=== PATIENT | male | born 1950 | race Caucasian/White ===

== ENCOUNTER 2017-12-08 10:26 | Emergency (ER) | payer MEDICARE ==
[2017-12-08 10:44] VITALS: TEMP 96.4
[2017-12-08] MEDS ORDERED: TETANUS,DIPHTHERIA,PERTUSSIS 1 EA SYG IM ONE (10:45)
--- NOTE | 2017-12-08 11:03 | ED.PDOC ---
History of Present Illness - General Chief Complaint: Laceration Stated Complaint: laceration Time Seen by Provider: 12/08/17 11:03 Source: patient Exam Limitations: no limitations - History of Present Illness Initial Comments: Tu Parada 67 y/o male stated accidentally injure left thumb with hand saw when it slipped off while cutting wood at home.Had laceration on his left thumb after incident. Timing/Duration: just prior to arrival Severity: moderate Location: hands - left thumb Improving Factors: rest Worsening Factors: movement Associated Symptoms: denies symptoms Allergies/Adverse Reactions: Allergies NO KNOWN ALLERGY Allergy (Verified 12/08/17 10:44) Home Medications: Ambulatory Orders Acetaminophen W/ Codeine [Tylenol W/ CODEINE #3] 1 ea PO Q4HR PRN #14 12/08/17 Amoxicillin 12/08/17 Review of Systems - Review of Systems Constitutional: States: no symptoms reported EENTM: States: no symptoms reported Respiratory: States: no symptoms reported Cardiology: States: no symptoms reported Skin: States: see HPI All other Systems: Reviewed and Negative, No Change from Baseline Past Medical History (General) - Patient Medical History Hx Stroke: No Hx Congestive Heart Failure: No Hx Diabetes: No - Vaccination History Hx Tetanus, Diphtheria Vaccination: - unknown Hx Influenza Vaccination: Yes Hx Pneumococcal Vaccination: No - Social History Hx Tobacco Use: Yes - occasional cigar smoking Family Medical History - Family History Father Family History: Unknown Living Status: Unknown Physical Exam - Physical Exam General Appearance: Alert, Comfortable, No apparent distress Eyes, Ears, Nose, Throat Exam: normal ENT inspection Neck: non-tender, full range of motion Cardiovascular/Chest: normal peripheral pulses, regular rate, rhythm Respiratory: lungs clear, normal breath sounds Gastrointestinal/Abdominal: non tender, soft Back Exam: normal inspection Extremity: normal range of motion - left thumb;neurovascular intact before local anesthesia, non-tender Neurologic: no motor/sensory deficits, alert, oriented x 3 Skin Exam: warm/dry, normal color Skin Problem Location: other - laceration left thumb Skin Character: other - laceration left thumb 2.5 cm Progress - Progress Progress: 12/08/17 11:53 Last Vital Signs Temp 96.4 F L 12/08/17 10:40 Pulse 65 12/08/17 10:40 Resp 16 12/08/17 10:40 BP 156/98 12/08/17 10:40 Pulse Ox 96 12/08/17 10:40 - EKG/XRAY/CT XRAY: left thumb no FB,no fracture Procedures - Laceration/Wound Repair Finger Wound Length (cm): 2.5 - left thumb dorsal aspect Wound's Depth, Shape: superficial, irregular Wound Explored: no foreign body removed Irrigated w/ Saline (cc's): 30 Betadine Prep?: No - hibiclens Anesthesia: 1% Lidocaine Volume Anesthetic (cc's): 8 Wound Repaired With: sutures Suture Size/Type: 4:0, nylon Number of Sutures: 6 Layer Closure?: No Sterile Dressing Applied?: Yes Departure - Departure Clinical Impression: Laceration of thumb without complication Qualifiers: Encounter type: initial encounter Laterality: left Qualified Code(s): S61.012A - Laceration without foreign body of left thumb without damage to nail, initial encounter Time of Disposition: 11:57 Disposition: Discharge to Home or Self Care Departure Forms: ED Discharge - Pt. Copy, Patient Portal Self Enrollment Instructions: DI for Laceration Repair, DI for Laceration Repair -- Finger Prescriptions: Acetaminophen W/ Codeine [Tylenol W/ CODEINE #3] 1 ea PO Q4HR PRN #14 PRN Reason: Pain Home Medications: Ambulatory Orders Acetaminophen W/ Codeine [Tylenol W/ CODEINE #3] 1 ea PO Q4HR PRN #14 12/08/17 Amoxicillin 12/08/17 Additional Instructions: Removal of stitches 12/21/2017 [facility] [place] [facility]
[2017-12-08] MEDS ORDERED: NEOMYCIN-BACITRACIN-POLYMYXIN 0.9 GM UD TOP ONE (11:09)
[2017-12-08] MEDS ORDERED: LIDOCAINE 1% 10 ML VIAL INJ ONE (11:09)
[2017-12-08] MEDS ORDERED: CHLORHEXIDINE GLUCONATE 4 % 15 ML UD TOP ONE (11:10)
--- NOTE | 2017-12-08 11:13 | RAD ---
Procedure: XR FINGERS Exam Date: 12/08/2017 10:45 AM [employer] Ordering Provider: Surinder Torres Clinical Indication: laceration to thumb with hand saw Comparison: None Findings: No fracture, focal osseous destruction, or malalignment. Degenerative changes are seen at the thumb CMC joint. There is no radiopaque foreign body. Soft tissue defect is seen about the dorsal aspect of the thumb MCP joint. IMPRESSION: No acute osseous abnormality. Soft tissue defect about the dorsal aspect of the thumb MCP joint. No radiopaque foreign body. Electronically signed by: Joseph Stevenson MD 12/08/2017 11:12 AM [employer]
[2017-12-08 12:09] VITALS: BP 171/97; O2SAT 98
== END 2017-12-08 12:14 | disposition home or self-care (01) ==
LOC: ER 10:26
DX: S61.012A Laceration without foreign body of left thumb without damage to nail, initial encounter (principal); W27.0XXA Contact with workbench tool, initial encounter; Y92.009 Unspecified place in unspecified non-institutional (private) residence as the place of occurrence of the external cause